=== PATIENT | male | born 1985 | race African-American/Black ===

== ENCOUNTER 2023-09-10 12:38 | Emergency (ER) | payer SELFPAY ==
[2023-09-10] MEDS ORDERED: ASPIRIN 81 MG CHEWABLE TABLET ONE (13:09)
[2023-09-10 13:15] LABS: Absolute Basophils 0.1 K/uL (0-0.5); Absolute Lymphocytes (CBC) 1.1 K/uL (0.7-4.9); Absolute Monocytes 0.4 K/uL (0.1-1.3); Basophils % 0.8 % (0-1.3); Eosinophils % 0.4 % (0-4.4); Hematocrit 44.2 % (39.6-49.0); Hemoglobin 14.6 g/dL (13.6-17.9); Lymphocytes % 16.9 % (15.3-44.8); MCH 30.7 pg (27.0-35.0); MCV 93.1 fL (80-100); MPV 7.8 fL (7.6-11.3); Monocytes % 6.4 % (3.3-12.3); Neutrophils % 75.5 % (41.7-73.7); Nucleated Red Blood Cells % 0.1 % (0-0); Platelets 265 thou/uL (152-406); RBC Red Blood Cell Count 4.75 M/uL (4.33-5.43); Red Cell Distribution Width 14.6 % (12.1-15.2)
[2023-09-10 13:35] LABS: Anion Gap 9.1 mEq/L (5.0-15.0); Potassium 4.1 mEq/L (3.5-5.1); Troponin High Sensitivity 5.1 pg/mL (<58.9)
--- NOTE | 2023-09-10 13:54 | RAD REPORT ---
EXAM DESCRIPTION: RAD - Chest Single View - 09/10/2023 1:44 pm CLINICAL HISTORY: CHEST PAIN COMPARISON: No comparisons FINDINGS: Lines: None. Lungs: Mild airspace disease in the left lung base. Pleural: No significant pleural effusions or pneumothorax. Cardiac: The heart size is within normal limits. Mediastinum: Within normal limits. Bones: No acute fractures. Other: None IMPRESSION: Nonspecific airspace disease at the left lung base could reflect pneumonia or atelectasi s.
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
[2023-09-10] MEDS ORDERED: DOXYCYCLINE 100 MG CAP PO ONE (14:37)
[2023-09-10 15:29] VITALS: BP 147/97; TEMP 98.3; O2SAT 100
== END 2023-09-10 14:57 | disposition home or self-care (01) ==
LOC: EDBD → ER 12:38
DX: J18.9 Pneumonia, unspecified organism (principal)
CPT/HCPCS: 36415; 71045; 80048; 84484; 85025; 93005; 99285

== ENCOUNTER 2023-09-10 21:35 | Emergency (ER) | payer SELFPAY ==
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
[2023-09-10] MEDS ORDERED: CYCLOBENZAPRINE 10 MG TAB ONE (23:08)
[2023-09-10] MEDS ORDERED: ONDANSETRON 4 MG (ODT) TAB ONE (23:08)
[2023-09-10 23:58] VITALS: BP 160/90; TEMP 98.1; O2SAT 99
== END 2023-09-10 23:35 | disposition home or self-care (01) ==
LOC: ER 21:35 → EDBD 21:35 → ER 23:35
DX: M54.6 Pain in thoracic spine (principal); R10.84 Generalized abdominal pain; M54.2 Cervicalgia
CPT/HCPCS: 70450; 71250; 72125; 99283; Q0162

== ENCOUNTER 2023-09-11 02:41 | Emergency (ER) | payer SELFPAY ==
[2023-09-11] MEDS ORDERED: DIAZEPAM 5 MG TABLET ONE (03:18)
[2023-09-11 03:44] LABS: Barbiturates NEGATIVE (NEGATIVE); Benzodiazepines NEGATIVE (NEGATIVE); Cocaine NEGATIVE (NEGATIVE); METHAMPHETAM POSITIVE (NEGATIVE); Methadone NEGATIVE (NEGATIVE); Opiates NEGATIVE (NEGATIVE); Phencyclidine NEGATIVE (NEGATIVE); THC Cannibis NEGATIVE (NEGATIVE)
[2023-09-11 03:47] LABS: Specific Gravity 1.007 (1.005-1.030); Urine Bilirubin NEGATIVE (Negative); Urine Blood Negative (Negative); Urine Clarity Clear (Clear); Urine Color Colorless (Yellow); Urine Glucose NEGATIVE (Negative); Urine Ketones NEGATIVE (Negative); Urine Microscopic Reflex YN NO UMIC; Urine Nitrite NEGATIVE (Negative); Urine Protein NEGATIVE (Negative); Urine Urobilinogen Normal (Normal)
[2023-09-11 05:34] LABS: Absolute Eosinophils 0.1 K/uL (0-0.5); Absolute Lymphocytes (CBC) 1.5 K/uL (0.7-4.9); Absolute Monocytes 0.4 K/uL (0.1-1.3); Absolute Neutrophil 3.9 K/uL (1.8-8.0); Basophils % 0.8 % (0-1.3); Eosinophils % 2.2 % (0-4.4); Hematocrit 41.2 % (39.6-49.0); Hemoglobin 13.9 g/dL (13.6-17.9); Lymphocytes % 25.5 % (15.3-44.8); MCH 31.3 pg (27.0-35.0); MCHC 33.8 g/dL (32.0-36.0); MCV 92.4 fL (80-100); MPV 7.9 fL (7.6-11.3); Monocytes % 6.4 % (3.3-12.3); Neutrophils % 65.1 % (41.7-73.7); Nucleated Red Blood Cells % 0.2 % (0-0); Platelets 255 thou/uL (152-406); RBC Red Blood Cell Count 4.46 M/uL (4.33-5.43); Red Cell Distribution Width 14.5 % (12.1-15.2)
[2023-09-11 05:38] LABS: PT Prothrombin Time 13.4 SECONDS (9.5-12.5); PTT, Activated Partial Thromb 38.5 SECONDS (24.3-36.9); Protime INR 1.23
[2023-09-11 05:50] LABS: ALT/SGPT 33 U/L (16-61); AST/SGOT 39 U/L (15-37); Albumin 3.7 g/dL (3.4-5.0); Albumin/Globulin Ratio 0.7 (1.1-1.8); Alkaline Phosphatase 117 U/L (45-117); Anion Gap 8.8 mEq/L (5.0-15.0); BUN Blood Urea Nitrogen 13 mg/dL (7-18); Bicarbonate 27 mEq/L (21-32); Bilirubin Direct 0.1 mg/dL (0-0.2); Bilirubin Indirect, Calculated 0.3 mg/dL (0.2-0.8); Bilirubin Total 0.4 mg/dL (0.2-1.0); Glomerular Filtration Rate 81 ml/min (=/>90); Glucose Level 89 mg/dL (74-106); Potassium 3.8 mEq/L (3.5-5.1); Protein, Total 8.7 g/dL (6.4-8.2); Sodium Level 132 mEq/L (136-145)
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
[2023-09-11 10:39] VITALS: BP 145/92; TEMP 98.5; O2SAT 99
== END 2023-09-11 10:20 ==
LOC: ER 02:41
DX: R45.851 Suicidal ideations (principal); F32.A Depression, unspecified; F17.210 Nicotine dependence, cigarettes, uncomplicated
CPT/HCPCS: 36415; 80048; 80076; 80143; 80179; 80307; 81003; 82077; 85025; 85610; 85730; 93005; 99285